=== PATIENT | male | born 1975 ===

== ENCOUNTER 2017-01-28 22:34 | Emergency (ER) | payer OTHER, BC ==
[~2017-01-28] VITALS: Ht 180.3 cm; Wt 86.2 kg
[~2017-01-28 22:34] MED LIST: ISENTRESS400 MG PO; NORCO 5-325 TA1 EACH PO; TRUVADA 200 MG1 EACH PO
[2017-01-29] MEDS ORDERED: NORCO 5-325 TA1 EACH PO (00:36)
== END 2017-01-29 01:15 | disposition home or self-care (01) ==
LOC: ED 22:34
DX: S62.364A Nondisplaced fracture of neck of fourth metacarpal bone, right hand, initial encounter for closed fracture (principal); S62.344A Nondisplaced fracture of base of fourth metacarpal bone, right hand, initial encounter for closed fracture; W51.XXXA Accidental striking against or bumped into by another person, initial encounter
CPT/HCPCS: 73130; 99283